=== PATIENT | female | born 1955 | race Native Hawaiian/Other Pacific Islander ===

== ENCOUNTER 2020-06-10 08:24 | Day surgery (SDC) | payer BC ==
[~2020-06-10] VITALS: Ht 30.5 cm; Wt 0.5 kg
== END 2020-06-10 09:52 | disposition home or self-care (01) ==
LOC: OR 08:24
PROC: 3E0R33Z Introduction of Anti-inflammatory into Spinal Canal, Percutaneous Approach (ICD-10-PCS; principal; 2020-06-10)
DX: M51.16 Intervertebral disc disorders with radiculopathy, lumbar region (principal)
CPT/HCPCS: J1100; Q9966